=== PATIENT | male | born 1975 | race African-American/Black ===

== ENCOUNTER 2023-06-22 13:56 | Emergency (ER) | payer OTHER, SELFPAY ==
[2023-06-22] MEDS ORDERED: Ibuprofen 800 MG TAB ONE (14:22)
== END 2023-06-22 14:50 | disposition home or self-care (01) ==
LOC: NAV ERS 13:56
DX: S62.511A Displaced fracture of proximal phalanx of right thumb, initial encounter for closed fracture (principal); W18.30XA Fall on same level, unspecified, initial encounter
CPT/HCPCS: 29125

== ENCOUNTER 2025-10-09 17:29 | Emergency (ER) | payer SELFPAY ==
[2025-10-09 17:58] LABS: #Basophils 0.1 thou/uL (0.0-0.2); #Eosinophils 0.0 thou/uL (0.0-0.7); #Lymphocytes 2.9 thou/uL (1.20-3.40); #Monocytes 0.5 thou/uL (0.11-0.59); #Neutrophils 4.9 thou/uL (1.40-6.50); %Basophils 1.3 % (0.0-1.0); %Eosinophils 0.1 % (0.0-10.0); %Lymphocytes 34.4 % (21.0-51.0); %Monocytes 5.6 % (0.0-10.0); %Neutrophils 58.6 % (42.0-75.0); Hematocrit 41.8 % (42.0-52.0); Hemoglobin 14.6 g/dL (14.0-18.0); Mean Corpuscular Hemoglobin 33.1 pg (27.0-31.0); Mean Corpuscular Volume 95.0 fl (78.0-98.0); Platelet Count 279 10x3/uL (130-400); Red Blood Cell (RBC) Count 4.40 mill/uL (4.70-6.10); White Blood Cell (WBC) Count 8.3 10x3/uL (4.8-10.8)
[2025-10-09 18:01] LABS: INR-International Normal Ratio 1.0; Prothrombin Time 13.2 sec (12.0-14.7)
[2025-10-09 18:02] LABS: PTT 29.1 sec (22.9-36.1)
[2025-10-09 18:06] LABS: ALT (SGPT) 20 U/L (Less than 45); AST (SGOT) 29 U/L (11-34); Albumin 4.0 g/dL (3.1-4.5); Alkaline Phosphatase 50 U/L (40-110); Anion Gap 15 mmol/L (10-20); BUN (Urea Nitrogen) 13 mg/dL (8.9-20.6); Bilirubin, Total 1.0 mg/dL (0.3-1.2); Calc. Creatinine Clearance 0 mL/min (70-130); Calcium 8.7 mg/dL (7.8-10.44); Carbon Dioxide 23 mmol/L (22-29); Chloride 105 mmol/L (98-107); Globulin 3.1 g/dL (2.4-3.5); Glucose 101 mg/dL (70-105); Potassium 3.6 mmol/L (3.5-5.1); Sodium 139 mmol/L (136-145)
[2025-10-09 18:07] LABS: Troponin I Less than 0.010 ng/mL (< 0.028)
== END 2025-10-09 19:07 | disposition home or self-care (01) ==
LOC: NAV ERS 17:29
DX: I51.7 Cardiomegaly (principal); I12.9 Hypertensive chronic kidney disease with stage 1 through stage 4 chronic kidney disease, or unspecified chronic kidney disease; N18.2 Chronic kidney disease, stage 2 (mild); F10.10 Alcohol abuse, uncomplicated; R29.710 NIHSS score 10; Z72.0 Tobacco use; Z55.6 Problems related to health literacy; Z71.6 Tobacco abuse counseling
CPT/HCPCS: 36416; 70450; 80053; 84484; 85025; 85610; 85730; 99406